=== PATIENT | male | born 1985 | race Caucasian/White ===

== ENCOUNTER 2022-03-17 16:41 | Emergency (ER) | payer BC, OTHER ==
[2022-03-17 17:04] VITALS: BP 136/96; PULSE 81; RESP 18; TEMP 98.3; BMI 26.4
== END 2022-03-17 20:51 | disposition left against medical advice (07) ==
LOC: JER 16:41
DX: K56.609 Unspecified intestinal obstruction, unspecified as to partial versus complete obstruction (principal)
CPT/HCPCS: 74018-TC-FY; 99283-25